=== PATIENT | male | born 1995 | race Caucasian/White ===

== ENCOUNTER → 2021-08-27 16:24 | Outpatient (CLI) | payer OTHER, SELFPAY ==
--- NOTE | 2021-08-27 | DI.MRI.S_ITS ---
PROCEDURE: MR ELBOW RT WO CON INDICATIONS: Pain in right arm TECHNIQUE: Noncontrast coronal proton density fast spin echo and T2 fast spin echo with fat saturation, axial and sagittal T1 spin echo and T2 fast spin echo with fat saturation through the elbow. COMPARISON: None. FINDINGS: Image quality: Excellent. Lateral structures: The lateral ulnar collateral ligament and radial collateral ligament both appear intact. The overlying common extensor tendon also appears normal. Medial structures: The ulnar collateral ligament appears intact. The overlying common flexor tendon appears normal. The ulnar nerve appears normal in size and signal within the cubital tunnel. Anterior structures: Biceps tendon is torn at its radial attachment with 4 centimeters of retraction. The brachialis tendon appears intact as it inserts onto the proximal ulna. No bicipitoradial bursal fluid. The median and radial neurovascular bundles appear normal; no focal muscle atrophy to suggest nerve impingement. Posterior structures: The conjoint triceps tendon from the long and lateral heads appears intact. The medial head of the triceps tendon also appears normal, with direct muscle insertion onto the olecranon. No olecranon bursal fluid. Bone and cartilage: No bone marrow contusions or fractures. No osteochondral injuries. IMPRESSION: Torn and retracted biceps tendon. Dictated by: Lila Mace MD, PhD on 08/30/2021 at 9:19 Approved by: Lila Mace MD, PhD on 08/30/2021 at 10:31
== END ==
DX: S46.211A Strain of muscle, fascia and tendon of other parts of biceps, right arm, initial encounter (principal); M79.601 Pain in right arm
CPT/HCPCS: 73221

== ENCOUNTER 2022-09-09 13:16 | Emergency (ER) | payer OTHER, SELFPAY ==
[2022-09-09 13:23] VITALS: BP 136/76; PULSE 90; RESP 15; TEMP 36.9; O2SAT 98; BMI 30.8
[2022-09-09 17:09] VITALS: BP 119/65; PULSE 71; O2SAT 97
[2022-09-09 17:40] VITALS: BP 127/65; PULSE 67; O2SAT 98
[2022-09-09 18:00] VITALS: BP 129/74; PULSE 74; O2SAT 97
--- NOTE | 2022-09-09 18:12 | ED.URI ---
HPI - URI/Sore Throat <DAYANNA Jaeger - Last Filed: 09/09/22 18:47> General Chief Complaint: Upper Respiratory Symptoms Stated Complaint: uvula hard to swallow trob. breathing t-1 Time Seen by Provider: 09/09/22 17:42 Source: patient Mode of arrival: Ambulatory History of Present Illness HPI Narrative: This is a 27-year-old male who presents to the emergency department for concerns about his swollen uvula which he states started this morning and is concerned about his pain. He denies any airway compromise, difficulty swallowing, difficulty breathing, or any vomiting. He states that it feels like it gags him but he has not had any moments where he could not catch his breath. He states that his throat is mildly sore, denies any rhinorrhea, congestion, cough, fever chills. Denies any new sexual contacts or recent trauma or vomiting. Patient states that his uvula is longer and red, and it is normally this way. Related Data Allergies Allergy/AdvReac Type Severity Reaction Status Date / Time No Known Drug Allergies Allergy Verified 09/09/22 13:23 Review of Systems <DAYANNA Jaeger - Last Filed: 09/09/22 18:47> Review of Systems ROS Unobtainable: All systems reviewed & are unremarkable except as noted in HPI and below Patient History <DAYANNA Jaeger - Last Filed: 09/09/22 18:47> Social History Smoking Status: Current some day smoker Smoking Status: Current some day smoker alcohol intake frequency: holidays/special occasions only Substance Use Type: does not use Exam <DAYANNA Jaeger - Last Filed: 09/09/22 18:47> Narrative Exam Narrative: Reviewed vitals signs and nursing notes. General: cooperative, comfortable, in no acute distress, well groomed HEENT: symmetrical facial expressions, moist mucous membranes, posterior pharynx with mild erythema, tonsillar adenopathy proximally 2+, without exudate, throat culture obtained and is pending, uvula is edematous and erythematous without obvious peritonsillar abscess, Gagan's angina, anterior cervical lymphadenopathy, or stridor, uvula is midline, without ulceration or drainage Neuro: normal speech and cognition, A&O x3, ambulatory, clear speech Psych: mental status is grossly normal, congruent mood, normal affect, pleasant and cooperative Initial Vital Signs Initial Vital Signs: Vital Signs Temperature 98.4 F 09/09/22 13:23 Pulse Rate 90 09/09/22 13:23 Respiratory Rate 15 09/09/22 13:23 Blood Pressure 136/76 09/09/22 13:23 Pulse Oximetry 98 09/09/22 13:23 Oxygen Delivery Method 09/09/22 13:23 <Isabelle Clark DO - Last Filed: 09/15/22 19:09> Initial Vital Signs Initial Vital Signs: Vital Signs Temperature 98.4 F 09/09/22 13:23 Pulse Rate 90 09/09/22 13:23 Respiratory Rate 15 09/09/22 13:23 Blood Pressure 136/76 09/09/22 13:23 Pulse Oximetry 98 09/09/22 13:23 Oxygen Delivery Method 09/09/22 13:23 Course <DAYANNA Jaeger - Last Filed: 09/09/22 18:47> Orders Ordered: Discontinued Medications Dexamethasone (Dexamethasone 10 Mg/Ml Vial) 10 mg PO NOW ONE Stop: 09/09/22 18:11 Last Admin: 09/09/22 18:25 Dose: 10 mg Documented By: NIDHI Ketorolac Tromethamine (Ketorolac 30 Mg/Ml Vial) 30 mg IM NOW ONE Stop: 09/09/22 18:11 Last Admin: 09/09/22 18:25 Dose: 30 mg Documented By: NIDHI Vital Signs Vital signs: Vital Signs - 8 hr 09/09/22 13:23 09/09/22 17:09 09/09/22 17:40 Temperature 98.4 F Pulse Rate 90 71 Respiratory Rate 15 Blood Pressure 136/76 119/65 127/65 Pulse Oximetry 98 97 Oxygen Delivery Method Room Air Room Air 09/09/22 17:40 09/09/22 18:00 09/09/22 18:00 Temperature Pulse Rate 67 74 Respiratory Rate Blood Pressure 129/74 Pulse Oximetry 98 97 Oxygen Delivery Method <Isabelle Clark DO - Last Filed: 09/15/22 19:09> Orders Ordered: Discontinued Medications Dexamethasone (Dexamethasone 10 Mg/Ml Vial) 10 mg PO NOW ONE Stop: 09/09/22 18:11 Last Admin: 09/09/22 18:25 Dose: 10 mg Documented By: NIDHI Ketorolac Tromethamine (Ketorolac 30 Mg/Ml Vial) 30 mg IM NOW ONE Stop: 09/09/22 18:11 Last Admin: 09/09/22 18:25 Dose: 30 mg Documented By: NIDHI Vital Signs Vital signs: Vital Signs - 8 hr 09/09/22 13:23 09/09/22 17:09 09/09/22 17:40 Temperature 98.4 F Pulse Rate 90 71 Respiratory Rate 15 Blood Pressure 136/76 119/65 127/65 Pulse Oximetry 98 97 Oxygen Delivery Method Room Air Room Air 09/09/22 17:40 09/09/22 18:00 09/09/22 18:00 Temperature Pulse Rate 67 74 Respiratory Rate Blood Pressure 129/74 Pulse Oximetry 98 97 Oxygen Delivery Method MDM - URI/Sore Throat <Soco Beckwith SENIOR MASTER SCHEDULER - Last Filed: 09/09/22 18:47> Lab Data Labs: Lab Results 09/09/22 Range/Units 17:43 SARS-CoV-2 (PCR) Negative (Negative) Influenza A (RT-PCR) Flu a negative (NEGATIVE) Influenza B (RT-PCR) Flu b negative (NEGATIVE) RSV (PCR) Negative (Negative) Point of Care Testing Rapid Strep A Negative MDM Narrative Medical decision making narrative: This is a 27-year-old male who presents to the emergency department with concerns about his swollen uvula which he states started this morning when he woke up. Complains of pain, swelling, and a sore throat. Rapid strep was negative, on exam his uvula is midline, mildly erythematous and edematous without overt signs of peritonsillar abscess, retropharyngeal abscess, Gagan's angina, tonsillar exudate, stridor, anterior cervical lymphadenopathy, drainage, or other airway concern. Airway is widely patent. Respiratory panel is negative for COVID, influenza, and RSV, throat culture is pending. Patient treated with Decadron, Toradol IM and encouraged to return to the emergency department for worsening symptoms. No history of immunocompromise. Nontoxic appearance. Patient euvolemic with no trismus. No airway compromise. No change in voice, exudates, enlarged lymph nodes. Able to tolerate PO. Given History and Exam I have low suspicion for this presentation being caused by TRIMMING CUTTER, RPA, Ludwigs angina, Epiglottitis or Bacterial Tracheitis, EBV, acute HIV, or Strep throat. <Isabelle Clark, - Last Filed: 09/15/22 19:09> Lab Data Labs: Lab Results 09/09/22 Range/Units 17:43 SARS-CoV-2 (PCR) Negative (Negative) Influenza A (RT-PCR) Flu a negative (NEGATIVE) Influenza B (RT-PCR) Flu b negative (NEGATIVE) RSV (PCR) Negative (Negative) Point of Care Testing Rapid Strep A Negative Discharge Plan Departure Patient Disposition: Home Clinical Impression: Pharyngitis Qualifiers: Pharyngitis/tonsillitis etiology: unspecified etiology Qualified Code(s): J02.9 - Acute pharyngitis, unspecified Instructions: Sore Throat, Viral Pharyngitis Activity Restrictions/Additional Instructions: *You have been diagnosed with sore throat with swelling to your tonsils and uvula. The steroid and anti-inflammatory medications he received today should help. Please stay hydrated with cold clear fluids. Please return to the emergency department if you have worsening of this, have pus or exudate coming off of your tonsils, or other concerning symptom. This is most likely a viral infection. We will call you if your COVID or influenza tests are positive, it could be RSV as well. Please take Zyrtec or other antihistamine as needed and return for worsening. We will call you if there is bacterial growth on the throat culture. I hope you feel better soon, please take 800 mg of ibuprofen every 8 hours with food and water, this should keep the inflammation down, have a good [place]. *What to do: *Please continue to take your regular medications as directed. [ ] New medication prescriptions sent to your pharmacy: [ ] [ ] New medication written as a paper prescription [ x] No new medications given *Please follow up with your primary care provider in 2-3 days, call for an appointment. Let them know you were seen in the Emergency Department and that we asked that you be seen for follow-up. We will electronically transmit a record of today's note if your PCP is in our system *If you do not have a primary care provider please contact [phone] to establish care with one of the [facility] primary care providers. *Return to Emergency Department if you should have any new, worsening, or concerning symptoms, such as [fever greater than 101F, chills, worsening pain, persistent vomiting or other bothersome symptoms]. Visit Report Forms: Patient Portal/API <Isabelle Clark DO - Last Filed: 09/15/22 19:09> Cosign ED Attending Cosdaxature Attestation: I was immediately available in the department for consultation. Documentation has been reviewed.
[2022-09-09 18:25] LABS: Influenza A - CEPHEID Flu A NEGATIVE (NEGATIVE); Influenza B - CEPHEID Flu B NEGATIVE (NEGATIVE); Respiratory Syncytial Virus Negative (Negative)
[2022-09-09] MEDS: DEXAMETHASONE 10 MG/ML VIAL PO (18:25)
[2022-09-09] MEDS: KETOROLAC 30 MG/ML VIAL IM (18:25)
[2022-09-09 18:34] LABS: COVID-19 CEPHEID 4-PLEX PCR Negative (Negative)
== END 2022-09-09 18:29 | disposition home or self-care (01) ==
PROVIDERS: Emergency Provider Nurse Practitioner Critical Care Medicine
DX: J02.9 Acute pharyngitis, unspecified (principal); Z20.822 Contact with and (suspected) exposure to COVID-19
CPT/HCPCS: 0241U; 87070; 87077; 87147; 87880; 96372; 99283; J1100; J1885